=== PATIENT | male | born 1975 | race Two or more races ===

== ENCOUNTER 2017-08-21 05:41 | Inpatient (IN) | payer OTHER ==
[2017-08-21] VITALS (14 sets, daily range): BP systolic 102–129; BP diastolic 60–85
[~2017-08-21] VITALS: Ht 177.8 cm; Wt 96.6 kg
[2017-08-21] MEDS ORDERED: PROTONIX20 MG ORAL (06:11)
[2017-08-21] MEDS ORDERED: AMBIEN10 MG ORAL (06:11)
[2017-08-21] MEDS ORDERED: NAPROXEN500 M2 ORAL (06:11)
[2017-08-21] MEDS ORDERED: NORCO 10-325 T1 EACH ORAL (06:11)
[2017-08-21] MEDS ORDERED: Thrombin 5000 units TOPIC ONE (07:06)
[2017-08-21] MEDS ORDERED: Bupivacaine w/Epi 0.75% 30ml Vial INJ ONE (07:06)
[2017-08-21] MEDS ORDERED: Thrombin 5000 units spray kit TOPIC ONE (07:07)
[2017-08-21] MEDS ORDERED: Bacitracin 50000 Units Vial ONE (07:07)
[2017-08-21] MEDS ORDERED: Gelfoam Absorbable 1gm powder pkt TOPIC ONE (07:07)
--- NOTE | 2017-08-21 07:18 | Pre-Procedure Note/Attestation ---
Pre-Procedure Note/Attestation Complete Prior to Procedure Planned Procedure: not applicable Procedure Narrative: L5/S1 instability and disc herniation, for ALIF L5/S1 Indications for Procedure Pre-Operative Diagnosis: L5/S1 instability and disc herniation, for ALIF L5/S1 Attestation I attest that I discussed the nature of the procedure; its benefits; risks and complications; and alternatives (and the risks and benefits of such alternatives ), prior to the procedure, with the patient (or the patient's legal banking representative). I attest that, if there was a reasonable possibility of needing a blood transfusion, the patient (or the patient's legal banking representative) was given the [place] [facility] standardized written summary, pursuant to the Zac Abdullahi Blood Safety Act ([place] Health and Safety Code # 1645, as amended). I attest that I re-evaluated the patient just prior to the surgery and that there has been no change in the patient's H&P, except as documented below: BRYNN ASHTON Aug 21, 2017 07:18
--- NOTE | 2017-08-21 07:18 | Pre-Procedure Note/Attestation ---
Pre-Procedure Note/Attestation Complete Prior to Procedure Planned Procedure: not applicable Procedure Narrative: L5/S1 instability and disc herniation, for ALIF L5/S1 Indications for Procedure Pre-Operative Diagnosis: L5/S1 instability and disc herniation, for ALIF L5/S1 Attestation I attest that I discussed the nature of the procedure; its benefits; risks and complications; and alternatives (and the risks and benefits of such alternatives ), prior to the procedure, with the patient (or the patient's legal outside sales representative insurance). I attest that, if there was a reasonable possibility of needing a blood transfusion, the patient (or the patient's legal outside sales representative insurance) was given the [place] [facility] standardized written summary, pursuant to the Zac Abdullahi Blood Safety Act ([place] Health and Safety Code # 1645, as amended). I attest that I re-evaluated the patient just prior to the surgery and that there has been no change in the patient's H&P, except as documented below: BRYNN ASHTON Aug 21, 2017 07:18
--- NOTE | 2017-08-21 07:18 | Pre-Procedure Note/Attestation ---
Pre-Procedure Note/Attestation Complete Prior to Procedure Planned Procedure: not applicable Procedure Narrative: L5/S1 instability and disc herniation, for ALIF L5/S1 Indications for Procedure Pre-Operative Diagnosis: L5/S1 instability and disc herniation, for ALIF L5/S1 Attestation I attest that I discussed the nature of the procedure; its benefits; risks and complications; and alternatives (and the risks and benefits of such alternatives ), prior to the procedure, with the patient (or the patient's legal medical field representative). I attest that, if there was a reasonable possibility of needing a blood transfusion, the patient (or the patient's legal medical field representative) was given the [place] [facility] standardized written summary, pursuant to the Zac Abdullahi Blood Safety Act ([place] Health and Safety Code # 1645, as amended). I attest that I re-evaluated the patient just prior to the surgery and that there has been no change in the patient's H&P, except as documented below: BRYNN ASHTON Aug 21, 2017 07:18
[2017-08-21] MEDS ORDERED: LR 1000ml 1,000 ML IVLG SCH (08:24)
[2017-08-21] MEDS ORDERED: Hydromorphone 0.5mg/0.5ml inj IVP PRN (08:30)
[2017-08-21] MEDS ORDERED: LR 1000ml 1,000 ML IV SCH (08:30)
[2017-08-21] MEDS ORDERED: DiphenhydrAMINE 50mg/ml Inj IVP PRN ×2 (08:30→13:00)
[2017-08-21] MEDS ORDERED: LORazepam Inj 2mg/ml 1ml IV PRN (08:30)
[2017-08-21] MEDS ORDERED: Meperidine 50mg/ml Inj(FOR RIGORS ONLY) IM PRN (08:30)
--- NOTE | 2017-08-21 08:30 | Anethesia Preoperative Eval ---
Anesthesia Pre-op PMH/ROS General Date of Evaluation: Aug 21, 2017 Time of Evaluation: 07:30 Anesthesiologist: Marla ASA Score: ASA 2 Mallampati Score Class I : Soft palate, uvula, fauces, pillars visible Class II: Soft palate, uvula, fauces visible Class III: Soft palate, base of uvula visible Class IV: Only hard plate visible Mallampati Classification: Class II Surgeon: Elaina Diagnosis: Back pain Surgical Procedure: ALIF L5-S1 Family History: no anesthesia problems Allergies: Coded Allergies: No Known Allergies (Unverified , 08/21/17) Medications: see eMAR Past Medical History Cardiovascular: Denies: HTN, CAD, CT, valve dz, arrhythmia, other Pulmonary: Denies: asthma, COPD, SIMRAN, other Gastrointestinal/Genitourinary: Reports: GERD, Denies: CRI, ESRD, other Neurologic/Psychiatric: Denies: dementia, CVA, depression/anxiety, TIA, other Endocrine: Denies: DM, hypothyroidism, steroids, other HEENT: Denies: cataract (L), cataract (R), glaucoma, PAUMA (L), PAUMA (R), other Hematology/Immune: Denies: anemia, DVT, bleeding disorder, other Musculoskeletal/Integumentary: Denies: OA, RA, DJD, DDD, edema, other PMH Narrative: GERD PSxH Narrative: Microdiscectomy Anesthesia Pre-op Phys. Exam Physician Exam Last Vital Signs Date Time Temp Pulse Resp B/P (MAP) Pulse Ox O2 Delivery O2 Flow Rate FiO2 08/21/17 06:13 97.5 69 17 129/83 96 Room Air Airway Exam Mallampati Score: Class II MO: full ROM: full Teeth: intact Anesthesia Pre-op A/P Labs WNL Studies Pre-op Studies: EKG - NSR, CXR - NAD Risk Assessment & Plan Assessment: Healthy ASA CLass 2 patient for ALIF Plan: GETA, SedLine Status Change Before Surgery: No Pre-Antibiotics Drug: Ancef Given Within 1 Hr of Incision: Yes Time Given: 09:20 LEOBARDO HARDWICK M.D. Aug 21, 2017 08:30
--- NOTE | 2017-08-21 08:30 | Anethesia Preoperative Eval ---
Anesthesia Pre-op PMH/ROS General Date of Evaluation: Aug 21, 2017 Time of Evaluation: 07:30 Anesthesiologist: Marla ASA Score: ASA 2 Mallampati Score Class I : Soft palate, uvula, fauces, pillars visible Class II: Soft palate, uvula, fauces visible Class III: Soft palate, base of uvula visible Class IV: Only hard plate visible Mallampati Classification: Class II Surgeon: Elaina Diagnosis: Back pain Surgical Procedure: ALIF L5-S1 Family History: no anesthesia problems Allergies: Coded Allergies: No Known Allergies (Unverified , 08/21/17) Medications: see eMAR Past Medical History Cardiovascular: Denies: HTN, CAD, [place], valve dz, arrhythmia, other Pulmonary: Denies: asthma, COPD, SIMRAN, other Gastrointestinal/Genitourinary: Reports: GERD, Denies: CRI, ESRD, other Neurologic/Psychiatric: Denies: dementia, CVA, depression/anxiety, TIA, other Endocrine: Denies: DM, hypothyroidism, steroids, other HEENT: Denies: cataract (L), cataract (R), glaucoma, BEAVER (L), BEAVER (R), other Hematology/Immune: Denies: anemia, DVT, bleeding disorder, other Musculoskeletal/Integumentary: Denies: OA, RA, DJD, DDD, edema, other PMH Narrative: GERD PSxH Narrative: Microdiscectomy Anesthesia Pre-op Phys. Exam Physician Exam Last Vital Signs Date Time Temp Pulse Resp B/P (MAP) Pulse Ox O2 Delivery O2 Flow Rate FiO2 08/21/17 06:13 97.5 69 17 129/83 96 Room Air Airway Exam Mallampati Score: Class II MO: full ROM: full Teeth: intact Anesthesia Pre-op A/P Labs WNL Studies Pre-op Studies: EKG - NSR, CXR - NAD Risk Assessment & Plan Assessment: Healthy ASA CLass 2 patient for ALIF Plan: GETA, SedLine Status Change Before Surgery: No Pre-Antibiotics Drug: Ancef Given Within 1 Hr of Incision: Yes Time Given: 09:20 LEOBARDO HARDWICK M.D. Aug 21, 2017 08:30
--- NOTE | 2017-08-21 08:30 | Anethesia Preoperative Eval ---
Anesthesia Pre-op PMH/ROS General Date of Evaluation: Aug 21, 2017 Time of Evaluation: 07:30 Anesthesiologist: Marla ASA Score: ASA 2 Mallampati Score Class I : Soft palate, uvula, fauces, pillars visible Class II: Soft palate, uvula, fauces visible Class III: Soft palate, base of uvula visible Class IV: Only hard plate visible Mallampati Classification: Class II Surgeon: Elaina Diagnosis: Back pain Surgical Procedure: ALIF L5-S1 Family History: no anesthesia problems Allergies: Coded Allergies: No Known Allergies (Unverified , 08/21/17) Medications: see eMAR Past Medical History Cardiovascular: Denies: HTN, CAD, [place], valve dz, arrhythmia, other Pulmonary: Denies: asthma, COPD, SIMRAN, other Gastrointestinal/Genitourinary: Reports: GERD, Denies: CRI, ESRD, other Neurologic/Psychiatric: Denies: dementia, CVA, depression/anxiety, TIA, other Endocrine: Denies: DM, hypothyroidism, steroids, other HEENT: Denies: cataract (L), cataract (R), glaucoma, KAIBAB (L), KAIBAB (R), other Hematology/Immune: Denies: anemia, DVT, bleeding disorder, other Musculoskeletal/Integumentary: Denies: OA, RA, DJD, DDD, edema, other PMH Narrative: GERD PSxH Narrative: Microdiscectomy Anesthesia Pre-op Phys. Exam Physician Exam Last Vital Signs Date Time Temp Pulse Resp B/P (MAP) Pulse Ox O2 Delivery O2 Flow Rate FiO2 08/21/17 06:13 97.5 69 17 129/83 96 Room Air Airway Exam Mallampati Score: Class II MO: full ROM: full Teeth: intact Anesthesia Pre-op A/P Labs WNL Studies Pre-op Studies: EKG - NSR, CXR - NAD Risk Assessment & Plan Assessment: Healthy ASA CLass 2 patient for ALIF Plan: GETA, SedLine Status Change Before Surgery: No Pre-Antibiotics Drug: Ancef Given Within 1 Hr of Incision: Yes Time Given: 09:20 LEOBARDO HARDWICK M.D. Aug 21, 2017 08:30
--- NOTE | 2017-08-21 08:31 | Immediate Post-Op Evaluation ---
Immediate Post-Op Evalulation Immediate Post-Op Evalulation Procedure: ALIF L5-S1 Date of Evaluation: Aug 21, 2017 Time of Evaluation: 11:15 IV Fluids: 1600 Estimated Blood Loss: 70 Blood Pressure Systolic: 121 Blood Pressure Diastolic: 75 Pulse Rate: 89 Respiratory Rate: 12 O2 Sat by Pulse Oximetry: 99 Temperature (Fahrenheit): 98.7 Pain Score (1-10): 3 Nausea: No Vomiting: No Complications No complication Patient Status: awake, patent, extubated, none Hydration Status: adequate Drug: Ancef Given Within 1 Hr of Incision: Yes Time Given: 09:20 LEOBARDO HARDWICK M.D. Aug 21, 2017 08:31
[2017-08-21] MEDS ORDERED: Propofol 200mg/20ml IV ONE (09:00)
[2017-08-21] MEDS ORDERED: NS Irrig 1000ml ONE (09:00)
[2017-08-21] MEDS ORDERED: LR 1000ml ONE (09:00)
[2017-08-21] MEDS ORDERED: Midazolam 2mg/2ml Inj ONE (09:00)
[2017-08-21] MEDS ORDERED: Sterile Water Irrig 1000ml IRRIG ONE (09:00)
[2017-08-21] MEDS ORDERED: fentaNYL 100 mcg/2 mL IV ONE (09:00)
[2017-08-21] MEDS ORDERED: Zemuron 50mg/5ml Inj IV ONE (09:00)
[2017-08-21] MEDS ORDERED: Ropivacaine 5mg/ml Vial 30ml INJ ONE (10:31)
--- NOTE | 2017-08-21 10:55 | Operative Note - PDOC ---
Operative Note Operative Note Chief Complaint: Low Back Pain Pre-op Diagnosis: L5/S1 instability and disc herniation, for ALIF L5/S1 Operative Findings: consistent w/pre-op dx studies Surgeon: Elaina Musical Instruments Assembler: SAVANNAH Delgadillo Additional Surgeons: Vazquez - Vascular Access Anesthesiologist: Marla Anesthesia: general Specimen: yes Complications: none Condition: stable Drains: none Implant(s) used?: Yes - Angelina InFix device, BRYNN Golden Aug 21, 2017 10:55
--- NOTE | 2017-08-21 10:55 | Operative Note - PDOC ---
Operative Note Operative Note Chief Complaint: Low Back Pain Pre-op Diagnosis: L5/S1 instability and disc herniation, for ALIF L5/S1 Operative Findings: consistent w/pre-op dx studies Surgeon: Elaina Trench Pipe Layer Helper: SAVANNAH Delgadillo Additional Surgeons: Vazquez - Vascular Access Anesthesiologist: Marla Anesthesia: general Specimen: yes Complications: none Condition: stable Drains: none Implant(s) used?: Yes - Angelina InFix device, BRYNN Golden Aug 21, 2017 10:55
[2017-08-21] MEDS ORDERED: Meperidine 50mg/ml Inj(FOR RIGORS ONLY) IVP ONE (12:00)
--- NOTE | 2017-08-21 12:12 | Diagnostic Imaging Report ---
Indication: PAIN lower back pain Technique: Digital intraoperative images Comparison: None Findings: Intraoperative images demonstrate surgical needle projecting at the anterior aspect of what is presumably L5-S1 disc space. Subsequent images document placement of a disc prosthesis at L5-S1 Impression: Intraoperative imaging, as described
[2017-08-21] MEDS: PCA HYDROmorphone 1mg/ml 30 ML IV PRN (12:17)
[2017-08-21] MEDS ORDERED: LORazepam 1mg tab ORAL PRN (13:00)
[2017-08-21] MEDS ORDERED: Rate Change PCA 1 Each MISC PRN (13:00)
[2017-08-21] MEDS ORDERED: Naloxone 0.4mg/ml Inj IVP PRN (13:00)
[2017-08-21] MEDS ORDERED: PCA Education Pamphlet MISC ONE (14:00)
[2017-08-21] MEDS ORDERED: Acetaminophen 650 MG SUPP RECTAL PRN (15:00)
[2017-08-21] MEDS: ceFAZolin sod 1 GM in D5W 55 ML IV SCH (17:23)
--- NOTE | 2017-08-21 18:00 | Operative Note - Dictated ---
DATE OF OPERATION: 08/21/2017 SURGEON: Dwight Delaney M.D. SEISMOGRAPH SUPERVISOR: Liz Jimenez CO-SURGEON FOR APPROACH: Otis Shukla M.D. ANESTHESIA: General endotracheal with arterial blood pressure monitoring by Dr. Dubon. PREOPERATIVE DIAGNOSES: Discogenic disease at L5-S1 with localizing selective nerve root block, evidence of significant disc degeneration, loss of disc height, segmental instability and bulge, and tear of the anulus. POSTOPERATIVE DIAGNOSES: Discogenic disease at L5-S1 with localizing selective nerve root block, evidence of significant disc degeneration, loss of disc height, segmental instability and bulge, and tear of the anulus. DESCRIPTION OF PROCEDURE: Left anterior abdominal pararectus approach to the lumbar spine with vessel mobilization and retraction at the lumbosacral level by Dr. Shukla with the use of a table fixed frame and reverse tip blades. Then, there was an anterior annulotomy and nuclear discectomy performed along with a bilateral partial vertebrectomy and bilateral neurolysis and foraminotomy at L5-S1. An open reduction and internal fixation was accomplished internally at the L5-S1 disc space using an 8 mm large endplate InFix implant with 3+3 degrees of lordosis. Fusion was accomplished with autogenous bone and bone protein used within the plate. Image intensifier was used for placement of the prosthesis and localization of the disc level for assessment of her overall alignment of lordosis. Pulse oximetry was also used to monitor the patient's vascular status. The patient was prepped and draped supine on the operating table. After induction of satisfactory anesthesia, the lumbar area was prepped and draped freely. A left pararectus incision was made by Dr. Shukla. The rectus was mobilized. The retroperitoneal space was entered. The vessels were identified at the lumbosacral level. Both the artery and vein were dissected free and retracted medial and lateral to the lumbosacral disc space. The center of the disc was marked. Image intensifier was used to localize the center of the disc and to check the disc level and alignment. A #10 blade was used to do an anterior annulotomy. The nuclear disc substance and cartilaginous endplate was then sequentially removed from front to back using larger and smaller Kerrison pituitaries, and rongeurs as well as curettes. [id number] distraction was accomplished with removal of lordotic distractors, which began at 8 mm, progressed up to 12. Dissection was carried to the PLL, posterior disc anulus, and foramen. The PLL was completely released and the sac was exposed. Both of the foramina on the right and left were widely open. The space was templated out to 8 mm with tension on the remaining lateral disc annulus, lateral muscles, and ligaments. An 8 mm large endplate prosthesis was chosen. The endplates were tapped into place, checked on image, and then the side struts were inserted. They were then locked on checking the position once again, and bone protein and autogenous bone that had been harvested during the vertebrectomy was then placed between the 2 plates of the InFix device. The vessels were checked and the wound was closed in layers including the anterior posterior rectus sheath, the subcutaneous, and skin. Blood loss was minimal. The patient was placed in a bulky compression dressing, returned to recovery room in good condition. Dwight Delaney M.D. DR: AUDI JOB#: [id number] CC:
--- NOTE | 2017-08-21 18:00 | Operative Note - Dictated ---
DATE OF OPERATION: 08/21/2017 VASCULAR SURGEON: Otis Shukla M.D. SPINE SURGEON: Dwight Delaney M.D. PREOPERATIVE DIAGNOSIS: Degenerative disk disease. POSTOPERATIVE DIAGNOSIS: Degenerative disk disease. PROCEDURE PERFORMED: Anterior retroperitoneal exposure of L5-S1 vertebral interspace. INDICATIONS: The patient is a very pleasant gentleman, who was seen in my office prior to surgery. He has been scheduled for anterior fusion L5-S1. He has no prior history of anterior abdominal surgery. No history of deep venous thrombosis or bleeding complications were described. He has been made aware of the risks of surgery including possibility of vascular injury, possible need for blood transfusion, and deep venous thrombosis. DESCRIPTION OF FINDINGS: A low vertical midline incision was used. A left retroperitoneal approach was used. There was no peritoneal or ureteral violation. There was no vascular injury. Exposure of L5-S1 was obtained below the iliac bifurcation with retraction of left iliac vessels superiorly and laterally. Fluoroscopy was used to confirm the appropriate level prior to instrumentation. On completion, the peritoneum and ureter were intact. Iliac vessels were intact. Blood loss was less than 100 mL. DESCRIPTION OF PROCEDURE: The patient was taken to the operating room, general anesthesia was used. IV antibiotics were given. The patient's abdomen was prepped and draped. Low vertical midline incision was made just above the pubic symphysis. The anterior fascia was incised longitudinally in the midline. A plane was identified posterior to the left rectus abdominis and developed posterolaterally towards the patient's left. The retroperitoneal space entered below the arcuate line. The peritoneum and ureter mobilized towards the patient's right exposing the left common iliac artery and vein. Dissection was carried on undersurface of left common iliac artery and vein. Overlying lymphatics were ligated with vascular clips. The middle sacral artery and vein were carefully divided with vascular clips. This allowed us to retract the left iliac artery and vein superiorly and laterally exposing the anterior surface of L5-S1. The Omni retractor was set in place. Fluoroscopy was then used to confirm the appropriate level and then instrumentation was performed at L5-S1 and dictated separately. On completion, the peritoneum and ureter were intact. The iliac vessels are intact. Anterior fascia was then closed using #1 PDS in a running fashion. Skin and subcutaneous tissue were closed with 3-0 Vicryl and 4-0 Monocryl. Otis Elinor Shukla DR: Jarad JOB#: [id number] CC: Dwight Delaney M.D.; Fax#: [phone] MTDD
[2017-08-21] MEDS: PCA shift volume MISC SCH (19:06)
[2017-08-22] VITALS: BP 104/67
[2017-08-22] MEDS: ceFAZolin sod 1 GM in D5W 55 ML IV SCH ×2 (00:34→08:56)
[2017-08-22 04:00] VITALS: BP 104/64
[2017-08-22] MEDS: PCA shift volume MISC SCH ×2 (07:12→19:22)
[2017-08-22 08:00] VITALS: BP 111/66
--- NOTE | 2017-08-22 11:29 | 48 Hour Post Anesthesia Eval ---
Post Anesthesia Evaluation Procedure: ALIF L5-S1 Date of Evaluation: Aug 22, 2017 Time of Evaluation: 13:05 Blood Pressure Systolic: 111 0: 66 Pulse Rate: 80 Respiratory Rate: 18 Temperature (Fahrenheit): 99.3 O2 Sat by Pulse Oximetry: 94 Airway: patent Nausea: No Vomiting: No Pain Intensity: 4 If pain is > 6 Comment: Using BIOMASS FACILITATOR appropriately. Complains of headache. Tx with Tylenol Hydration Status: adequate Cardiopulmonary Status: Stable Mental Status/LOC: patient returned to baseline Follow-up Care/Observations: As per surgery Post-Anesthesia Complications: No anesthetic complication Follow-up care needed: N/A LEOBARDO HARDWICK M.D. Aug 22, 2017 11:29
--- NOTE | 2017-08-22 11:29 | 48 Hour Post Anesthesia Eval ---
Post Anesthesia Evaluation Procedure: ALIF L5-S1 Date of Evaluation: Aug 22, 2017 Time of Evaluation: 13:05 Blood Pressure Systolic: 111 0: 66 Pulse Rate: 80 Respiratory Rate: 18 Temperature (Fahrenheit): 99.3 O2 Sat by Pulse Oximetry: 94 Airway: patent Nausea: No Vomiting: No Pain Intensity: 4 If pain is > 6 Comment: Using PATIENT INSURANCE CLERK appropriately. Complains of headache. Tx with Tylenol Hydration Status: adequate Cardiopulmonary Status: Stable Mental Status/LOC: patient returned to baseline Follow-up Care/Observations: As per surgery Post-Anesthesia Complications: No anesthetic complication Follow-up care needed: N/A LEOBARDO HARDWICK M.D. Aug 22, 2017 11:29
--- NOTE | 2017-08-22 11:29 | 48 Hour Post Anesthesia Eval ---
Post Anesthesia Evaluation Procedure: ALIF L5-S1 Date of Evaluation: Aug 22, 2017 Time of Evaluation: 13:05 Blood Pressure Systolic: 111 0: 66 Pulse Rate: 80 Respiratory Rate: 18 Temperature (Fahrenheit): 99.3 O2 Sat by Pulse Oximetry: 94 Airway: patent Nausea: No Vomiting: No Pain Intensity: 4 If pain is > 6 Comment: Using OIL FIELD EQUIPMENT MECHANIC appropriately. Complains of headache. Tx with Tylenol Hydration Status: adequate Cardiopulmonary Status: Stable Mental Status/LOC: patient returned to baseline Follow-up Care/Observations: As per surgery Post-Anesthesia Complications: No anesthetic complication Follow-up care needed: N/A LEOBARDO HARDWICK M.D. Aug 22, 2017 11:29
[2017-08-22 12:00] VITALS: BP 105/67
[2017-08-22] MEDS: PCA HYDROmorphone 1mg/ml 30 ML IV PRN (12:12)
--- NOTE | 2017-08-22 14:19 | General Progress Note ---
Assessment/Plan Assessment/Plan L5/S1 instability and disc herniation, for ALIF L5/S1 lumbar disc disease back pain PLAN 1. incentive spirometry 2. DVT prophylaxis 3. PT evaluation and therapy 4. Hydration; advance diet as tolerate 5. Pain management 6. discharge once stable with outpatient follow up Subjective Date patient seen: Aug 21, 2017 Allergies: Coded Allergies: No Known Allergies (Unverified , 08/21/17) Subjective seen earlier Objective Last 24 Hour Vital Signs Date Time Temp Pulse Resp B/P (MAP) Pulse Ox O2 Delivery O2 Flow Rate FiO2 08/21/17 20:00 18 08/21/17 18:05 19 08/21/17 16:00 97.8 73 19 116/60 98 Nasal Cannula 2.0 Height (Feet): 5 Height (Inches): 10.00 Weight (Pounds): 213 Objective WDWN NAD clear breath sounds bilaterally without rhonchi or wheeze [id number] without MRG no HSM no CCE nonfocal VALDEZ VALIENTE Aug 22, 2017 14:19
--- NOTE | 2017-08-22 14:19 | General Progress Note ---
Assessment/Plan Assessment/Plan L5/S1 instability and disc herniation, for ALIF L5/S1 lumbar disc disease back pain PLAN 1. incentive spirometry 2. DVT prophylaxis 3. PT evaluation and therapy 4. Hydration; advance diet as tolerate 5. Pain management 6. discharge once stable with outpatient follow up Subjective Date patient seen: Aug 21, 2017 Allergies: Coded Allergies: No Known Allergies (Unverified , 08/21/17) Subjective seen earlier Objective Last 24 Hour Vital Signs Date Time Temp Pulse Resp B/P (MAP) Pulse Ox O2 Delivery O2 Flow Rate FiO2 08/21/17 20:00 18 08/21/17 18:05 19 08/21/17 16:00 97.8 73 19 116/60 98 Nasal Cannula 2.0 Height (Feet): 5 Height (Inches): 10.00 Weight (Pounds): 213 Objective WDWN NAD clear breath sounds bilaterally without rhonchi or wheeze [id number] without MRG no HSM no CCE nonfocal VALDEZ VALIENTE Aug 22, 2017 14:19
--- NOTE | 2017-08-22 14:19 | General Progress Note ---
Assessment/Plan Assessment/Plan L5/S1 instability and disc herniation, for ALIF L5/S1 lumbar disc disease back pain PLAN 1. incentive spirometry 2. DVT prophylaxis 3. PT evaluation and therapy 4. Hydration; advance diet as tolerate 5. Pain management 6. discharge once stable with outpatient follow up Subjective Date patient seen: Aug 21, 2017 Allergies: Coded Allergies: No Known Allergies (Unverified , 08/21/17) Subjective seen earlier Objective Last 24 Hour Vital Signs Date Time Temp Pulse Resp B/P (MAP) Pulse Ox O2 Delivery O2 Flow Rate FiO2 08/21/17 20:00 18 08/21/17 18:05 19 08/21/17 16:00 97.8 73 19 116/60 98 Nasal Cannula 2.0 Height (Feet): 5 Height (Inches): 10.00 Weight (Pounds): 213 Objective WDWN NAD clear breath sounds bilaterally without rhonchi or wheeze [id number] without MRG no HSM no CCE nonfocal VALDEZ VALIENTE Aug 22, 2017 14:19
--- NOTE | 2017-08-22 14:20 | General Progress Note ---
Assessment/Plan Assessment/Plan L5/S1 instability and disc herniation, for ALIF L5/S1 lumbar disc disease back pain PLAN 1. incentive spirometry 2. DVT prophylaxis 3. PT evaluation and therapy 4. Hydration; advance diet as tolerate 5. Pain management 6. discharge once stable with outpatient follow up Subjective Allergies: Coded Allergies: No Known Allergies (Unverified , 08/21/17) Subjective care seen Objective Last 24 Hour Vital Signs Date Time Temp Pulse Resp B/P (MAP) Pulse Ox O2 Delivery O2 Flow Rate FiO2 08/22/17 12:00 19 08/22/17 12:00 99.2 78 19 105/67 96 Room Air 08/22/17 11:29 80 18 94 08/22/17 08:00 99.3 80 18 111/66 94 Nasal Cannula 2.0 08/22/17 08:00 19 08/22/17 04:00 98.7 77 18 104/64 99 Nasal Cannula 2.0 08/22/17 04:00 18 08/22/17 00:05 18 08/22/17 00:00 98.4 72 18 104/67 97 Nasal Cannula 2.0 08/21/17 20:12 97.6 66 18 113/65 99 Nasal Cannula 2.0 08/21/17 20:00 18 08/21/17 18:05 19 08/21/17 16:00 97.8 73 19 116/60 98 Nasal Cannula 2.0 Height (Feet): 5 Height (Inches): 10.00 Weight (Pounds): 213 Objective WDWN NAD clear breath sounds bilaterally without rhonchi or wheeze [id number] without MRG no HSM no CCE nonfocal VALDEZ VALIENTE Aug 22, 2017 14:20
[2017-08-22 16:00] VITALS: BP 108/65
[2017-08-22 20:23] VITALS: BP 107/65
[2017-08-23 04:31] VITALS: BP 110/70
[2017-08-23] MEDS: PCA shift volume MISC SCH (07:10)
[2017-08-23 08:00] VITALS: BP 111/69
[2017-08-23 12:02] VITALS: BP 105/67
--- NOTE | 2017-08-23 12:46 | General Surgery Progress Note ---
General Surgery-Progress Note Subjective Symptoms: improved Objective Last 24 Hour Vital Signs Date Time Temp Pulse Resp B/P (MAP) Pulse Ox O2 Delivery O2 Flow Rate FiO2 08/23/17 12:02 99.1 87 19 105/67 98 Room Air 08/23/17 09:03 99.2 08/23/17 08:00 17 08/23/17 08:00 99.2 100 18 111/69 97 Room Air 08/23/17 04:31 98.3 101 21 110/70 95 Room Air 08/23/17 04:00 18 08/23/17 00:00 19 08/22/17 20:23 99.8 82 19 107/65 97 Room Air 08/22/17 20:00 18 08/22/17 16:00 98.1 84 18 108/65 98 Room Air 08/22/17 16:00 18 Dressing: dry Wound: clean Drains: none Abdomen: present bowel sounds Additional Comments Patient passing gas and is starting clear liquids. PT/OT working with patient. Dr. Margarita aguirre. Brace to be fitted today. BRYNN ASHTON Aug 23, 2017 12:46
[2017-08-23] MEDS ORDERED: Norco 7.5mg/325mg tab ORAL PRN (13:00)
[2017-08-23] MEDS ORDERED: HYDROmorphone 1mg/ml Carpuject SUBQ PRN (13:00)
[2017-08-23] MEDS ORDERED: Naloxone 0.4mg/ml Inj IVP PRN (13:00)
[2017-08-23] MEDS ORDERED: Norco 5mg/325mg tab ORAL PRN (13:00)
--- NOTE | 2017-08-23 13:03 | General Progress Note ---
Assessment/Plan Assessment/Plan L5/S1 instability and disc herniation, for ALIF L5/S1 lumbar disc disease back pain PLAN 1. incentive spirometry 2. DVT prophylaxis 3. PT evaluation and therapy 4. Hydration; advance diet as tolerated- regular diet ordered 5. Pain management 6. discharge possibly today or in am Subjective Allergies: Coded Allergies: No Known Allergies (Unverified , 08/21/17) Subjective care seen tolerating diet Objective Last 24 Hour Vital Signs Date Time Temp Pulse Resp B/P (MAP) Pulse Ox O2 Delivery O2 Flow Rate FiO2 08/23/17 12:02 99.1 87 19 105/67 98 Room Air 08/23/17 09:03 99.2 08/23/17 08:00 17 08/23/17 08:00 99.2 100 18 111/69 97 Room Air 08/23/17 04:31 98.3 101 21 110/70 95 Room Air 08/23/17 04:00 18 08/23/17 00:00 19 08/22/17 20:23 99.8 82 19 107/65 97 Room Air 08/22/17 20:00 18 08/22/17 16:00 98.1 84 18 108/65 98 Room Air 08/22/17 16:00 18 Height (Feet): 5 Height (Inches): 10.00 Weight (Pounds): 213 Objective WDWN NAD clear breath sounds bilaterally without rhonchi or wheeze [id number] without MRG no HSM; NABS no CCE nonfocal VALDEZ VALIENTE Aug 23, 2017 13:03
[2017-08-23 16:00] VITALS: BP 116/74
[2017-08-23 20:00] VITALS: BP 117/66
[2017-08-23] MEDS: HYDROmorphone 1mg/ml Carpuject IVP PRN (20:20)
[2017-08-24] VITALS: BP 111/71
[2017-08-24] MEDS: HYDROmorphone 1mg/ml Carpuject IVP PRN (00:49)
[2017-08-24 04:00] VITALS: BP 117/69
[2017-08-24 08:07] VITALS: BP 114/65
--- NOTE | 2017-08-24 08:40 | General Progress Note ---
Assessment/Plan Assessment/Plan L5/S1 instability and disc herniation, for ALIF L5/S1 lumbar disc disease back pain PLAN 1. incentive spirometry 2. SCD 3. PT evaluation and therapy 4. dc today once brace available 5. RX for percocet written Subjective Allergies: Coded Allergies: No Known Allergies (Unverified , 08/21/17) Subjective care seen tolerating diet had BM ambulating well notes pain levels still high Objective Last 24 Hour Vital Signs Date Time Temp Pulse Resp B/P (MAP) Pulse Ox O2 Delivery O2 Flow Rate FiO2 08/24/17 08:07 98.1 72 20 114/65 97 Room Air 08/24/17 05:45 98.4 08/24/17 04:00 99.4 80 18 117/69 96 Room Air 08/24/17 00:00 98.8 84 18 111/71 96 Room Air 08/23/17 20:00 98.4 77 18 117/66 98 Room Air 08/23/17 16:00 97.6 74 19 116/74 98 Room Air 08/23/17 12:02 99.1 87 19 105/67 98 Room Air 08/23/17 09:03 99.2 Intake and Output 08/24/17 08/25/17 19:00 07:00 Intake Total 280 ml Balance 280 ml Intake Oral 280 ml Height (Feet): 5 Height (Inches): 10.00 Weight (Pounds): 213 Objective WDWN NAD clear breath sounds bilaterally without rhonchi or wheeze [id number] without MRG no HSM; NABS no CCE nonfocal VALDEZ VALIENTE Aug 24, 2017 08:40
[2017-08-24] MEDS: Norco 7.5mg/325mg tab ORAL PRN ×2 (09:02→19:03)
--- NOTE | 2017-08-24 10:25 | General Surgery Progress Note ---
General Surgery-Progress Note Subjective Symptoms: improved Objective Last 24 Hour Vital Signs Date Time Temp Pulse Resp B/P (MAP) Pulse Ox O2 Delivery O2 Flow Rate FiO2 08/24/17 10:01 98.1 08/24/17 08:07 98.1 72 20 114/65 97 Room Air 08/24/17 05:45 98.4 08/24/17 04:00 99.4 80 18 117/69 96 Room Air 08/24/17 00:00 98.8 84 18 111/71 96 Room Air 08/23/17 20:00 98.4 77 18 117/66 98 Room Air 08/23/17 16:00 97.6 74 19 116/74 98 Room Air 08/23/17 12:02 99.1 87 19 105/67 98 Room Air I&O Intake and Output 08/24/17 08/25/17 19:00 07:00 Intake Total 280 ml Balance 280 ml Intake Oral 280 ml Dressing: dry Wound: clean Drains: none Additional Comments Patient tolerating regular diet, pain controlled with oral medication. Patient remains hospitalized until insurance carrier provides rigid L/S Orthosis. (May NOT discharge until properly fitted with brace). Dr. Avila following BRYNN ASHTON Aug 24, 2017 10:25
[2017-08-24] MEDS ORDERED: PERCOCET 10-321 EAC1 PO (11:00)
[2017-08-24] MEDS ORDERED: PERCOCET 10-321 EACH ORAL (11:01)
[2017-08-24 11:38] VITALS: BP 120/88
[2017-08-24 16:12] VITALS: BP 114/67
--- NOTE | 2017-08-25 13:31 | Discharge Summary ---
Discharge Summary Hospital Course Date of Admission Aug 21, 2017 at 05:41 Date of Discharge Aug 24, 2017 at 19:30 Admitting Diagnosis HPI Deja Gtz is a 42 year old male who was admitted on Aug 21, 2017 at 05:41 for Back Pain Hospital Course [id number] Discharge Discharge Disposition Patient was discharged to Home (01) Discharge Diagnoses: Melissa Barney NP Aug 25, 2017 13:31
--- NOTE | 2017-08-25 13:31 | Discharge Summary ---
Discharge Summary Hospital Course Date of Admission Aug 21, 2017 at 05:41 Date of Discharge Aug 24, 2017 at 19:30 Admitting Diagnosis HPI Deja Gtz is a 42 year old male who was admitted on Aug 21, 2017 at 05:41 for Back Pain Hospital Course [id number] Discharge Discharge Disposition Patient was discharged to Home (01) Discharge Diagnoses: Melissa Barney NP Aug 25, 2017 13:31
--- NOTE | 2017-08-25 13:31 | Discharge Summary ---
Discharge Summary Hospital Course Date of Admission Aug 21, 2017 at 05:41 Date of Discharge Aug 24, 2017 at 19:30 Admitting Diagnosis HPI Deja Gtz is a 42 year old male who was admitted on Aug 21, 2017 at 05:41 for Back Pain Hospital Course [id number] Discharge Discharge Disposition Patient was discharged to Home (01) Discharge Diagnoses: Melissa Barney NP Aug 25, 2017 13:31
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
== END 2017-08-24 19:30 | disposition home or self-care (01) | DRG 460 ==
LOC: SDSOVERFLO 05:41 → 3E 12:41
DX: M51.27 Other intervertebral disc displacement, lumbosacral region (principal); F17.200 Nicotine dependence, unspecified, uncomplicated; M53.2X7 Spinal instabilities, lumbosacral region; V29.9XXS Motorcycle rider (driver) (passenger) injured in unspecified traffic accident, sequela; G47.00 Insomnia, unspecified
CPT/HCPCS: 36415; 72020; 76001; 86850; 86900; 86901; 87081; 94003; 94150; J2250; J2405